=== PATIENT | female | born 1955 | race African-American/Black ===

== ENCOUNTER 2017-01-31 16:37 | Emergency (ER) | payer OTHER ==
[~2017-01-31] VITALS: Ht 160 cm; Wt 92.1 kg
[~2017-01-31 16:37] MED LIST: ADALAT CC 30 MG30 MG PO; ADULT LOW DOSE81 M1 PO; ADVIL200 MG PO; ALKA-SELTZER O1 EACH PO; AMITRIPTYLINE; AMITRIPTYLINE H10 MG PO; AMITRIPTYLINE H25 MG PO; AMOX TR-K CLV1 EAC3 PO; ASPIR 8181 MG PO; ASPIRIN325 MG PO; CATAPRES0.1 MG PO; ELAVIL50 MG PO; FUROSEMIDE20 MG PO; GRALISE300 MG PO; HUMALOG INSULIN SC; HUMULIN 70100 UNIT/2 SC; INSULIN LISPRO SC; JANUVIA25 M1 PO; JANUVIA25 MG PO; LASIX; LASIX20 MG PO; LISINOPRIL40 MG PO; LITE COAT ASPI325 M1 PO; METFORMIN HCL500 MG PO; METFORMIN PO; METOPROLOL SUC200 MG PO; NEURONTIN300 MG PO; NEXIUM20 M1 PO; NEXIUM20 MG PO; NIFEDICAL XL60 MG PO; NIFEDIPINE ER30 MG PO; NIFEDIPINE ER60 MG PO; NOVOLIN 70100 UNIT/1 SQ; NOVOLIN,HU100 UNITS/ SC; OMEPRAZOLE40 M1 PO; PANTOPRAZOLE; PANTOPRAZOLE SO20 MG PO; PANTOPRAZOLE SO40 MG PO; PERCOCET 5/31 TABLET PO; PRAVACHOL40 MG PO; PRAVASTATIN SOD80 MG PO; PRINIVIL20 MG PO; PRINIVIL40 MG PO; PROTONIX40 MG PO; SIMVASTATIN; SIMVASTATIN40 MG PO; TOPROL XL200 MG PO; TYLENOL EXTRA500 MG PO; ZESTRIL40 MG PO
[2017-01-31 17:04] LABS: POINT-OF-CARE METER ID UU13113702
[2017-01-31 17:31] LABS: HEMATOCRIT 40.2 % (36.0-46.0); MCH 31.4 PG (29.0-34.0); MCHC 34.6 G/DL (30.0-36.0); MCV 90.7 FL (83-99); PLATELET COUNT 218 K/uL (156-360); RBC DIS.WIDTH-SD 47.1 % (39-53); RED BLOOD COUNT 4.43 M/uL (3.80-5.20)
[2017-01-31 18:20] LABS: CARBON DIOXIDE (BICARBONATE) 27.3 MEQ/L (20-31)
[2017-01-31 19:40] LABS: CHLORIDE 103 mEq/L (99-109); SODIUM 139 mEq/L (136-147)
[2017-01-31 19:49] LABS: ADD MIUA? YES; BILIRUBIN NEGATIVE; BLOOD SMALL; COLOR STRAW ((YELLOW)); GLUCOSE (STRIP) >=500; KETONES 5; LEUKOCYTES NEGATIVE; NITRITE NEGATIVE; PROTEIN (STRIP) >=500; SPECIFIC GRAVITY 1.006 (1.000-1.030); UROBILINOGEN 0.2 MG/DL (0.2-1.0)
[2017-01-31 19:58] LABS: GLUCOSE 286 mg/dL (70-99)
[2017-01-31 20:00] LABS: ANION GAP 19 MEQ/L (2-14); TOTAL BILIRUBIN 0.6 mg/dL (0.0-1.0)
[2017-01-31 20:02] LABS: ALKALINE PHOSPHATASE 139 IU/L (3-129); GFR ESTIMATE (CALCULATED) 31 mL/min/
[2017-01-31 20:03] LABS: UREA NITROGEN (BUN) 21 mg/dL (9-23)
[2017-01-31 20:17] LABS: BACTERIA NONE SEEN /HPF; EPITHELIAL CELLS RARE /HPF; MUCUS NONE SEEN /LPF; RED BLOOD CELLS 0-5 /HPF (0-5); UCUL ADDED? NO; WHITE BLOOD CELLS 0-5 /HPF (0-5)
[2017-01-31] MEDS ORDERED: PROMETHAZINE HC25 M1 PO (20:29)
[2017-01-31 21:10] VITALS: BP 189/80
[2017-02-01] MEDS ORDERED: LOPRESSOR25 MG PO (07:54)
[2017-02-01] MEDS ORDERED: LOPRESSOR50 MG PO (07:54)
[2017-02-01] MEDS ORDERED: NIFEDIPINE ER90 MG PO (07:55)
[2017-02-01] MEDS ORDERED: PROTONIX40 MG PO (07:56)
[2017-02-01] MEDS ORDERED: ERGOCALCIF50000 UNIT PO (07:57)
== END 2017-01-31 21:23 | disposition home or self-care (01) ==
LOC: EME 16:37
PROVIDERS: Emergency Medicine
DX: E86.0 Dehydration (principal); R11.2 Nausea with vomiting, unspecified; I11.0 Hypertensive heart disease with heart failure; I50.9 Heart failure, unspecified; E11.9 Type 2 diabetes mellitus without complications; Z79.4 Long term (current) use of insulin; E78.5 Hyperlipidemia, unspecified; I25.2 Old myocardial infarction; F17.200 Nicotine dependence, unspecified, uncomplicated; K21.9 Gastro-esophageal reflux disease without esophagitis; I25.10 Atherosclerotic heart disease of native coronary artery without angina pectoris; Z86.73 Personal history of transient ischemic attack (TIA), and cerebral infarction without residual deficits; Z95.1 Presence of aortocoronary bypass graft; Z88.5 Allergy status to narcotic agent
CPT/HCPCS: 80053; 81003; 82803; 82948; 83605; 85027; 87040; 99281; 99284; J2405; J2765; J7030; Q0169

== ENCOUNTER 2017-02-01 01:08 | Inpatient (IN) | payer OTHER ==
[~2017-02-01] VITALS: Ht 160 cm; Wt 90.0 kg
[~2017-02-01 01:08] MED LIST changes: +PROMETHAZINE HC25 M1 PO
[2017-02-01 02:46] LABS: EOSINOPHIL (%) 0 % (0-5); HEMATOCRIT 42.4 % (36.0-46.0); IMMATURE GRANULOCYTE (%) 0.5 % (0.0-0.7); IMMATURE GRANULOCYTE COUNT 0.1 K/uL; INSTRUMENT ABS NEUTROPHIL CT 11.7 K/uL; LYMPHOCYTE COUNT 0.6 K/uL (1.0-2.8); MCH 31.3 PG (29.0-34.0); MCHC 34.2 G/DL (30.0-36.0); MCV 91.4 FL (83-99); MEAN PLAT.VOLUME 11.5 uM^3 (9.5-12.4); MONOCYTE (%) 1.9 % (3-12); MONOCYTE COUNT 0.2 K/uL (0-0.8); NEUTROPHIL (%) 92.9 % (45-76); NEUTROPHIL COUNT 11.7 K/uL (1.8-6.4); PLATELET COUNT 246 K/uL (156-360); RBC DIS.WIDTH-CV 14.5 % (11.8-14.6); RBC DIS.WIDTH-SD 47.6 % (39-53); RED BLOOD COUNT 4.64 M/uL (3.80-5.20); WHITE BLOOD COUNT 12.6 K/uL (4.1-10.2)
[2017-02-01 02:58] LABS: CHLORIDE 99 mEq/L (99-109); SODIUM 139 mEq/L (136-147)
[2017-02-01 03:01] LABS: ANION GAP 19 MEQ/L (2-14)
[2017-02-01 03:03] LABS: ALKALINE PHOSPHATASE 146 IU/L (3-129)
[2017-02-01 03:04] LABS: GFR ESTIMATE (CALCULATED) 28 mL/min/
[2017-02-01 03:05] LABS: UREA NITROGEN (BUN) 22 mg/dL (9-23)
[2017-02-01 03:07] LABS: LIPASE 40 U/L (1.0-51.0); TROP-I INTERPRETATION NEGATIVE; TROPONIN-I 0.04 ng/mL (0.0-0.30)
[2017-02-01 03:13] LABS: GLUCOSE 458 mg/dL (70-99); TOTAL BILIRUBIN 0.8 mg/dL (0.0-1.0)
[2017-02-01 03:45] LABS: POTASSIUM 3.7 mEq/L (3.7-5.4)
[2017-02-01 05:19] LABS: CARBON DIOXIDE (BICARBONATE) 27.9 MEQ/L (20-31)
[2017-02-01 06:58] LABS: POINT-OF-CARE METER ID UU13113747
[2017-02-01 07:51] LABS: ANION GAP 12 MEQ/L (2-14); CHLORIDE 104 MEQ/L (99-109); POTASSIUM 3.6 MEQ/L (3.7-5.4); SAMPLE HEMOLYSIS CHECK 0; SAMPLE ICTERIC CHECK 0; SAMPLE LIPEMIA CHECK 0; SODIUM 142 MEQ/L (136-147)
[2017-02-01] MEDS ORDERED: LOPRESSOR50 MG PO (07:54)
[2017-02-01] MEDS ORDERED: LOPRESSOR25 MG PO (07:54)
[2017-02-01] MEDS ORDERED: NIFEDIPINE ER90 MG PO (07:55)
[2017-02-01] MEDS ORDERED: PROTONIX40 MG PO (07:56)
[2017-02-01 07:57] LABS: GFR ESTIMATE (CALCULATED) 31 mL/min/; GLUCOSE 288 mg/dL (70-99); UREA NITROGEN (BUN) 21 mg/dL (9-23)
[2017-02-01] MEDS ORDERED: ERGOCALCIF50000 UNIT PO (07:57)
[2017-02-01 08:02] LABS: ADD MIUA? YES; BILIRUBIN NEGATIVE; BLOOD SMALL; COLOR STRAW ((YELLOW)); GLUCOSE (STRIP) >=500; KETONES 5; LEUKOCYTES NEGATIVE; NITRITE NEGATIVE; PROTEIN (STRIP) >=500; UROBILINOGEN 0.2 MG/DL (0.2-1.0)
[2017-02-01 08:11] LABS: BACTERIA RARE /HPF; EPITHELIAL CELLS RARE /HPF; MUCUS NONE SEEN /LPF; UCUL ADDED? NO; WHITE BLOOD CELLS 0-5 /HPF (0-5)
[2017-02-01 09:05] LABS: TROP-I INTERPRETATION NEGATIVE; TROPONIN-I 0.08 ng/mL (0.0-0.30)
[2017-02-01 11:11] LABS: POINT-OF-CARE METER ID UU13113747
[2017-02-01 14:25] LABS: POINT-OF-CARE METER ID UU13113747
[2017-02-01 15:37] LABS: TROP-I INTERPRETATION NEGATIVE
[2017-02-01 16:46] VITALS: BP 186/86
[2017-02-01 17:45] LABS: POINT-OF-CARE METER ID UU13113700
[2017-02-01 20:00] VITALS: BP 149/81
[2017-02-01 21:44] LABS: POINT-OF-CARE METER ID UU13113831
[2017-02-02 00:05] VITALS: BP 176/76
[2017-02-02 05:24] LABS: HEMATOCRIT 36.2 % (36.0-46.0); MCH 30.6 PG (29.0-34.0); MCHC 33.1 G/DL (30.0-36.0); MCV 92.3 FL (83-99); MEAN PLAT.VOLUME 10.1 uM^3 (9.5-12.4); PLATELET COUNT 214 K/uL (156-360); RBC DIS.WIDTH-SD 47.7 % (39-53); RED BLOOD COUNT 3.92 M/uL (3.80-5.20)
[2017-02-02 06:00] LABS: ANION GAP 10 MEQ/L (2-14); CHLORIDE 105 MEQ/L (99-109); GFR ESTIMATE (CALCULATED) 29 mL/min/; POTASSIUM 2.9 MEQ/L (3.7-5.4); SAMPLE HEMOLYSIS CHECK 0; SAMPLE ICTERIC CHECK 0; SAMPLE LIPEMIA CHECK 0; SODIUM 142 MEQ/L (136-147); UREA NITROGEN (BUN) 22 mg/dL (9-23)
[2017-02-02 06:08] LABS: GLUCOSE 30 mg/dL (70-99)
[2017-02-02 06:51] LABS: POINT-OF-CARE METER ID UU14162513
[2017-02-02 07:33] LABS: POINT-OF-CARE METER ID UU14162513
[2017-02-02 12:42] LABS: POINT-OF-CARE METER ID UU13113700
[2017-02-02 17:34] LABS: POINT-OF-CARE METER ID UU13113700
[2017-02-02 21:00] VITALS: BP 177/96
[2017-02-03 00:06] LABS: POINT-OF-CARE METER ID UU14162513
[2017-02-03 00:18] VITALS: BP 152/83
[2017-02-03 04:26] VITALS: BP 120/60
[2017-02-03 06:21] LABS: HEMATOCRIT 32.4 % (36.0-46.0); MCH 31.7 PG (29.0-34.0); MCV 95.9 FL (83-99); MEAN PLAT.VOLUME 11.2 uM^3 (9.5-12.4); NRBC (%) 0.3 /100 WBC (0-0); PLATELET COUNT 161 K/uL (156-360); RBC DIS.WIDTH-CV 14.3 % (11.8-14.6); RBC DIS.WIDTH-SD 50.1 % (39-53); RED BLOOD COUNT 3.38 M/uL (3.80-5.20); WHITE BLOOD COUNT 7.3 K/uL (4.1-10.2)
[2017-02-03 06:36] LABS: ANION GAP 8 MEQ/L (2-14); CHLORIDE 106 MEQ/L (99-109); GFR ESTIMATE (CALCULATED) 29 mL/min/; GLUCOSE 53 mg/dL (70-99); SAMPLE HEMOLYSIS CHECK 0; SAMPLE ICTERIC CHECK 0; SAMPLE LIPEMIA CHECK 0; SODIUM 141 MEQ/L (136-147); UREA NITROGEN (BUN) 25 mg/dL (9-23)
[2017-02-03 06:38] LABS: POTASSIUM 3.5 MEQ/L (3.7-5.4)
[2017-02-03 07:43] VITALS: BP 160/71
[2017-02-03 08:09] LABS: POINT-OF-CARE METER ID UU14117124
[2017-02-03 09:01] LABS: POINT-OF-CARE METER ID UU14117124
[2017-02-03] MEDS ORDERED: LISINOPRIL5 MG PO (10:14)
[2017-02-03 11:40] LABS: POINT-OF-CARE METER ID UU14117124
[2017-02-03] MEDS ORDERED: ASPIR 8181 M1 PO (11:42)
[2017-02-06 10:40] LABS: POINT-OF-CARE METER ID UU14162513
== END 2017-02-03 12:10 | disposition home or self-care (01) | DRG 305 ==
LOC: EME 01:08 → EDOF 08:01 → ENRESERV 08:03 → EDOF 08:04 → ENRESERV 14:34 → 5WEST 15:54 → 3EAST 02-02 07:32 → 5WEST 02-02 07:32 → ENRESERV 02-02 07:38 → CANRESERV 02-02 07:38 → ENRESERV 02-02 23:08 → 3EAST 02-03 00:11
PROVIDERS: Emergency Medicine; Hospitalist; Internal Medicine; Physician Assistant
DX: I16.0 Hypertensive urgency (principal); E87.6 Hypokalemia; E11.649 Type 2 diabetes mellitus with hypoglycemia without coma; E11.65 Type 2 diabetes mellitus with hyperglycemia; I13.0 Hypertensive heart and chronic kidney disease with heart failure and stage 1 through stage 4 chronic kidney disease, or unspecified chronic kidney disease; I50.32 Chronic diastolic (congestive) heart failure; E11.22 Type 2 diabetes mellitus with diabetic chronic kidney disease; E11.21 Type 2 diabetes mellitus with diabetic nephropathy; F17.210 Nicotine dependence, cigarettes, uncomplicated; I25.10 Atherosclerotic heart disease of native coronary artery without angina pectoris; K21.9 Gastro-esophageal reflux disease without esophagitis; N18.3 Chronic kidney disease, stage 3 (moderate); E78.5 Hyperlipidemia, unspecified; E66.9 Obesity, unspecified; G89.29 Other chronic pain; Z95.1 Presence of aortocoronary bypass graft; Z68.35 Body mass index [BMI] 35.0-35.9, adult; A08.4 Viral intestinal infection, unspecified
CPT/HCPCS: 70450; 74176; 80048; 80048 91; 80053; 81003; 82803; 82948; 83690; 84484; 84999; 85025; 85027; 93005; 99281; 99285; C9113; G0378; J0360; J1644; J1815; J2550; J3480; J7030; S0028